=== PATIENT | male | born 1950 | race Caucasian/White ===

== ENCOUNTER 2017-12-12 15:12 | Inpatient (IN) | payer OTHER ==
[~2017-12-12] VITALS: Ht 170.2 cm; Wt 113.4 kg
[2017-12-12 16:24] VITALS: BP 166/85
[2017-12-12] MEDS ORDERED: ASPIRIN 81 MG CHEW TAB PO ONE ×2 (16:30→17:00)
[2017-12-12 19:15] VITALS: BP 145/76
[2017-12-12 20:00] VITALS: BP 145/76
[2017-12-12] MEDS ORDERED: CABERGOLINE0.5 MG PO (22:17)
[2017-12-12] MEDS ORDERED: OMEPRAZOLE40 MG PO (22:17)
[2017-12-12] MEDS ORDERED: PRAVASTATIN SOD40 MG PO (22:17)
[2017-12-12] MEDS ORDERED: FUROSEMIDE40 MG PO (22:17)
[2017-12-12] MEDS ORDERED: ASPIRIN81 MG PO (22:17)
[2017-12-12] MEDS ORDERED: VITAMIN C WIT1000 MG PO (22:17)
[2017-12-12] MEDS ORDERED: LEVOTHYROXINE100 MC1 PO (22:17)
[2017-12-12] MEDS ORDERED: ONE DAILY1 EAC1 (22:17)
[2017-12-12] MEDS ORDERED: LEVOTHYROXINE100 MCG PO (22:27)
[2017-12-12 23:04] VITALS: BP 145/76
[2017-12-13] VITALS: BP 114/65
[2017-12-13 01:17] LABS: CREATINE KINASE MB 0.9 ng/mL (0.00-5.00)
[2017-12-13 04:00] VITALS: BP 131/68
[2017-12-13 05:55] LABS: BASOPHILS % 0.4 % (0.0-1.0); EOSINOPHILS # (AUTO) 0.3 (0.0-0.4); EOSINOPHILS % 3.9 % (0.0-6.0); HEMATOCRIT 40.6 % (38.2-49.6); HEMOGLOBIN 13.7 g/dL (14.0-18.0); LYMPHOCYTES # (AUTO) 1.5 (1.0-3.2); LYMPHOCYTES % 22.3 % (18.0-39.1); MEAN CORPUSCULAR HEMOGLOBIN 32.5 pg (28-32); MEAN CORPUSCULAR HGB CONC 33.7 g/dL (31-35); MEAN CORPUSCULAR VOLUME 96.4 fL (81-99); MONOCYTES # (AUTO) 0.6 (0.2-0.8); NEUTROPHILS # (AUTO) 4.5 (2.1-6.9); NEUTROPHILS % 65.1 % (38.7-80.0); PLATELET COUNT 181 x10e3/uL (140-360); RED BLOOD COUNT 4.21 x10e6/uL (4.3-5.7); RED CELL DISTRIBUTION WIDTH 13.9 % (11.7-14.4)
[2017-12-13] MEDS ORDERED: LEVOTHYROXINE SODIUM 100 MCG TAB PO SCH (06:00)
[2017-12-13 08:00] VITALS: BP 131/68
[2017-12-13 08:07] VITALS: BP 134/74
[2017-12-13] MEDS: FUROSEMIDE 40 MG TAB PO SCH ×2 (08:34→08:43)
[2017-12-13] MEDS ORDERED: ASPIRIN 81 MG ENTERIC COATED PO SCH (09:00)
[2017-12-13] MEDS ORDERED: ASPIRIN 81 MG CHEW TAB PO SCH (09:00)
[2017-12-13] MEDS ORDERED: ASCORBIC ACID 500 MG TAB PO SCH (09:00)
[2017-12-13] MEDS ORDERED: PANTOPRAZOLE SOD 40 MG TABEC PO SCH (09:00)
--- NOTE | 2017-12-13 14:07 | Consultation ---
DATE OF CONSULTATION: CARDIOLOGY CONSULTATION REQUESTING PHYSICIAN: Dr. Hidalgo. REASON FOR CONSULT: Chest pain. HISTORY OF PRESENTING ILLNESS: Mr. Damian is a 67-year-old gentleman with past medical history as listed below, reportedly developed chest pain yesterday that lasted for about 20 minutes; so, he decided to go to the urgent care. Initially he thought the urgent care belonged to [facility] where he follows up. The patient had some palpitations and shortness of breath. Since he had chest pain, he was transferred to the hospital. Patient states he feels fine now. No further episodes of chest pain. Patient normally follows with Dr. Oates at [facility]. He reportedly had a cardiac catheterization several years back and a stress test, was told all was fine. He is keen on going home, does not want any workup here. REVIEW OF SYMPTOMS CONSTITUTIONAL: Has some fatigue and weakness. HEENT: No headache, blurring of vision, seizures or syncope. CARDIOVASCULAR: Had chest pain. No dyspnea, orthopnea or PND. The patient had palpitations and some shortness of breath. RESPIRATORY: No cough, fever or expectoration. GI: No abdominal pain, vomiting, diarrhea. : No dysuria, frequency, incontinence. ALLERGIES: FINASTERIDE, SPIRONOLACTONE. MEDICATIONS: See list. PAST MEDICAL HISTORY 1. History of hypertension. 2. History of hypothyroidism. 3. History of having had a cardiac catheterization about 5 years back. 4. History of hyperlipidemia. 5. History of diabetes mellitus. 6. History of diverticulosis. 7. History of renal calculi. 8. History of skin cancer. PAST SURGICAL HISTORY 1. History of ORIF of left wrist and left leg. 2. History of TURP. 3. History of having had a cardiac catheterization. 4. History of left knee arthroscopy. 5. History of skin cancer removal. SOCIAL HISTORY: Does not smoke or drink. FAMILY HISTORY: Noncontributory. PHYSICAL EXAMINATION GENERAL: Obese gentleman, alert, oriented, not in any obvious distress. VITAL SIGNS: Heart rate is 64. Blood pressure 134/74. Respiratory rate is 18. Temperature is 96.9. HEENT: Atraumatic. NECK: No JVD, bruit, thyromegaly, lymphadenopathy. CARDIOVASCULAR: First and second heart sounds heard. No murmurs, rubs or gallops were appreciated. CHEST: Decreased air entry at the bases. No adventitious sounds appreciated. ABDOMINAL: Obese, nontender. EXTREMITIES: No edema. LABS: Hemoglobin 13.7, hematocrit is 40, platelets are 181, white count is 6.8. Cardiac enzymes are normal. EKG shows sinus rhythm at 84 beats per minute, normal axis, IVCD, nonspecific ST-T changes. IMPRESSION 1. Chest pain. 2. Hypertension. 3. Hyperlipidemia. 4. Diabetes mellitus. 5. Obesity. PLAN 1. No further episodes of chest pain. 2. Cardiac enzymes are normal. 3. Echocardiogram preliminary report shows EF of 40% to 45%. 4. Patient does not want any procedures done here. He wants to follow up at [facility]. 5. He will be calling his copier technician next week and be following up there next week. 6. Continue with aspirin, statins, low-dose beta blockers. I have discussed my impression and plan of management with the patient, and he understands it. As always, appreciate and thank you very much for your referrals. Job#: [id number] EV
--- NOTE | 2017-12-13 14:37 | History and Physical ---
CHIEF COMPLAINT: Chest pain. HISTORY: Patient is a 67-year-old male who came in with left-sided chest pain without any significant laboratory or physical finding. The patient has midsternal chest pressure. Pain still 5/10. Patient's cardiac enzyme was negative. The patient states that he has midsternal chest pain radiating to both neck areas, nonspecific and it went away. The patient was otherwise stable. Cardiac enzymes negative on multiple sets. The patient is stable. No chest pain now. He had a cardiac catheterization approximately 4 years ago that was negative. The patient is otherwise stable at this time. PAST MEDICAL HISTORY: Hyperlipidemia, diabetes, type 2, diverticulosis, reflux, kidney stone. He also has hypothyroidism. PAST SURGICAL HISTORY: Noncontributory. SOCIAL HISTORY: Patient does not smoke or use alcohol. No regular drugs. ALLERGIES: FINASTERIDE AND SPIRONOLACTONE. HOME MEDICATIONS: Ascorbic acid, aspirin, , Lasix, levothyroxine, multivitamins, omeprazole, and pravastatin. REVIEW OF SYSTEMS: Chest pain free now. PHYSICAL EXAMINATION VITAL SIGNS: Temperature is 97, blood pressure 134/74, pulse rate is 64, respirations 18. GENERAL: The patient is not in acute distress. HEENT: Normocephalic, atraumatic and anicteric. NECK: Supple grossly. PULMONARY: Clear. CARDIOVASCULAR: Regular rate and rhythm. ABDOMEN: Soft and obese. EXTREMITIES: No gross cyanosis or edema. NEUROLOGIC: No focal deficit. LABORATORY: Cardiac enzymes negative. Troponin is 0.03 and 0.017. Creatinine kinase 61 and 57. CK-MB is 0.9 and 1. Hematology is negative. Chest x-ray unremarkable. IMPRESSION: Chest pain. Cardiac catheterization 4 years ago negative. The patient does have risk factor with family of obesity, being male, and also has multiple risk factors. PLAN: Patient on staying for cardiac enzymes. Cardiac enzymes negative now. The patient wants to go home. Follow up with his card grinder helper tomorrow. The patient is otherwise stable. No chest pain. No symptoms at this time. Discussed with the patient regarding his symptoms. If he does have recurrent chest pain, he should follow up with his card grinder helper's instructions and go to the facility that his card grinder helper does, which is [facility]. Job#: [id number] RI
--- NOTE | 2017-12-13 18:34 | Discharge Summary ---
FINAL DIAGNOSES: 1. Chest pain. 2. Multiple cardiac risk factors. SUMMARY: A 67-year-old male discharged today per his request and also through his . He does have a close followup, most likely tomorrow with his metal machine setter. The patient is otherwise stable. Cardiac enzymes unremarkable. Overall the patient is comfortable. Echocardiogram showed ejection fraction of approximately 40% to 45%. He has trace PI and moderate AL. Patient is stable. No chest pain currently. The patient will follow up with his metal machine setter tomorrow. Please review my history and physical. Job#: [id number]
[2017-12-13] MEDS ORDERED: PRAVASTATIN 20 MG TAB PO SCH (21:00)
== END 2017-12-13 11:15 | disposition home or self-care (01) | DRG 313 ==
LOC: MED/SURG 16:00
PROVIDERS: ADMIT Internal Medicine; ATTEND Internal Medicine
DX: R07.9 Chest pain, unspecified (principal); I08.1 Rheumatic disorders of both mitral and tricuspid valves; I10 Essential (primary) hypertension; E66.9 Obesity, unspecified; E03.9 Hypothyroidism, unspecified; E11.9 Type 2 diabetes mellitus without complications; Z79.4 Long term (current) use of insulin; Z68.39 Body mass index [BMI] 39.0-39.9, adult; J98.4 Other disorders of lung
CPT/HCPCS: 36415; 82550; 82553; 84484; 85025; 93005; 93306

== ENCOUNTER 2023-05-22 10:58 | Emergency (ER) | payer MEDICARE, OTHER ==
[~2023-05-22] VITALS: Ht 170.2 cm; Wt 113.4 kg
[~2023-05-22 10:58] MED LIST: ASPIRIN81 MG PO; CABERGOLINE0.5 MG PO; FUROSEMIDE40 MG PO; LEVOTHYROXINE100 MC1 PO; LEVOTHYROXINE100 MCG PO; OMEPRAZOLE40 MG PO; ONE DAILY1 EAC1; PRAVASTATIN SOD40 MG PO; VITAMIN C WIT1000 MG PO
[2023-05-22] MEDS ORDERED: ONDANSETRON HCL INJ 2MG/ML 2ML 2 MG/ML VIAL IV STA (11:11)
[2023-05-22] MEDS ORDERED: Morphine 4mg INJECTION 4 MG/ML INJ IV PRN (11:15)
[2023-05-22] MEDS ORDERED: SODIUM CHLORIDE 0.9% 1000ML 1,000 ML IV ONE (11:15)
[2023-05-22] MEDS ORDERED: DIATRIZOATE MEGL/DIATRIZOA SOD 30 ML BTL PO ONE (11:20)
[2023-05-22 11:21] LABS: BASOPHILS % 0.2 % (0.0-1.0); EOSINOPHILS # (AUTO) 0.1 (0.0-0.4); HEMATOCRIT 42.7 % (38.2-49.6); HEMOGLOBIN 14.6 g/dL (14.0-18.0); LYMPHOCYTES # (AUTO) 1.3 (1.0-3.2); LYMPHOCYTES % 12.3 % (18.0-39.1); MEAN CORPUSCULAR HGB CONC 34.2 g/dL (31-35); MEAN CORPUSCULAR VOLUME 93.6 fL (81-99); MONOCYTES # (AUTO) 0.6 (0.2-0.8); MONOCYTES % 5.7 % (4.4-11.3); NEUTROPHILS # (AUTO) 8.5 (2.1-6.9); NEUTROPHILS % 80.5 % (38.7-80.0); PLATELET COUNT 219 x10e3/uL (140-360); RED BLOOD COUNT 4.56 x10e6/uL (4.3-5.7); RED CELL DISTRIBUTION WIDTH 13.2 % (11.7-14.4)
[2023-05-22 11:42] LABS: ALBUMIN 3.3 g/dL (3.5-5.0); ANION GAP 14.8 mmol/L (8-16); CALCIUM 9.6 mg/dL (8.4-10.2); CREATININE, SERUM 0.83 mg/dL (0.72-1.25); POTASSIUM 3.8 mmol/L (3.5-5.1)
[2023-05-22] MEDS ORDERED: IOPAMIDOL 370 MG/ML 100 ML INFUS..BTL INJ ONE (12:52)
[2023-05-22] MEDS ORDERED: AMOX TR-K CLV1 EAC2 PO (13:49)
[2023-05-22 14:18] VITALS: O2SAT 97
== END 2023-05-22 14:24 | disposition home or self-care (01) ==
LOC: ER 11:03
DX: R10.32 Left lower quadrant pain (principal); K57.32 Diverticulitis of large intestine without perforation or abscess without bleeding; R11.0 Nausea; E78.5 Hyperlipidemia, unspecified; E03.9 Hypothyroidism, unspecified; Z85.46 Personal history of malignant neoplasm of prostate
CPT/HCPCS: 36415; 74177; 80053; 83690; 85025; 99284; J2405; J7030; Q9963; Q9967